=== PATIENT | female | born 1960 | race Caucasian/White ===

== ENCOUNTER 2019-08-28 15:24 | Emergency (ER) | payer MEDICARE, OTHER ==
--- NOTE | 2019-08-28 16:17 | ED Physician Documentation ---
History of Present Illness - Stated complaint Stated Complaint: HIGH BP - Chief complaint Chief Complaint: Cardiac - History obtained from History obtained from: Patient - History of Present Illness Timing: Chronic - Additonal information Additional information: 59 year old female presents to the clinic for evaluation of hypertension. Reports that she has a long standing hx of htn. at home her BP typically is 140-160 sbp. Over the last 2 days she has consistently noted sbp in the 170-180 range. She denies CP, dyspnea, headache, feeling faint, light headed, vertigo, abdominal pain, dysuria, leg swelling. pt admits to recent frustration and anxiety to multiple health stressors. sh eis very frustrated in affect during today's ED visit Her hx is preceded by recent dc of breast cancer. s/p bilateral mastectomy which was complicate dby incision abscess of the left chest requiring hospitalization late June at . she has a chest wall wound which is being followed by home health and pt reports that over time she has noted the wound is improving.No fevers. [facility] Review of Systems Constitutional: denies: Fever, Myalgias Eyes: denies: Decreased vision Cardiac: reports: Reviewed and negative. denies: Chest pain / pressure, Palpitations, Pedal edema, Calf pain Respiratory: denies: Cough GI: denies: Abdominal Pain, Nausea, Vomiting : denies: Dysuria Skin: reports: Lesions (left chest wall wound healing by secondary intention) Musculoskeletal: reports: Back pain (chronic; no change in baseline) Neurologic: denies: Numbness, Difficulty speaking, Syncope, Seizure, Confused, Altered mental status, Headache Psychiatric: reports: Anxiety Endocrine: denies: Polydypsia, Polyuria Immunocompromised: reports: Other (she recently dx with breast cancer. s/p mastectomy bilaterally with bialteral lymphnode removal. 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 PRESS OPERATOR: Hysterectomy, Mastectomy - Present Medications Home Medications: Ambulatory Orders Medication Instructions Recorded Confirmed Albuterol Sulfate [Proair Hfa 1 puffs INH PRN PRN 08/28/19 08/28/19 Inhaler] Atorvastatin [Lipitor] 20 mg PO DAILY 08/28/19 08/28/19 Cetirizine [ZyrTEC] 10 mg PO DAILY 08/28/19 08/28/19 Cholecalciferol [Vitamin D3] 3,000 mg PO DAILY 08/28/19 08/28/19 Gabapentin 600 mg PO TID 08/28/19 08/28/19 Glipizide 10 mg PO BID 08/28/19 08/28/19 Leflunomide 20 mg PO DAILY 08/28/19 08/28/19 Levothyroxine [Synthroid] 75 mcg PO QDAC 08/28/19 08/28/19 Losartan Potassium 100 mg PO DAILY 08/28/19 08/28/19 Metformin HCl [Metformin HCl ER] 2,000 mg PO DAILY 08/28/19 08/28/19 Trazodone HCl 150 mg PO DAILY 08/28/19 08/28/19 amLODIPine [Norvasc] 10 mg PO DAILY 08/28/19 08/28/19 busPIRone [Buspar] 10 mg PO TID 08/28/19 08/28/19 - Allergies Allergies/Adverse Reactions: Allergies Allergy/AdvReac Type Severity Reaction Status Date / Time codeine Allergy Intermediate Respiratory Verified 08/28/19 15:34 cyclobenzaprine HCl * Allergy Intermediate Rash Verified 08/28/19 15:34 [From Flexeril] lisinopril Allergy Intermediate Respiratory Verified 08/28/19 15:34 flunisolide [Flunisolide] Allergy Unknown Unknown Verified 08/28/19 15:34 - Living Situation Living Situation: reports: Alone Living Arrangement: reports: At home - Social History Does the pt smoke?: No Smoking Status: Never smoker Does the pt drink ETOH?: No - Immunizations Immunizations are current?: Yes PD ED PE NORMAL - General General: Alert and oriented X 3, No acute distress - HEENT HEENT: Atraumatic - Neck Neck: Supple, no meningeal sign, No adenopathy - Cardiac Cardiac: RRR, No gallop, No rub, Strong equal pulses - Respiratory Respiratory: No respiratory distress, Clear bilaterally - Abdomen Abdomen: Normal bowel sounds, Non tender - Derm Derm: Normal color, Warm and dry, No rash - Extremities Extremities: No deformity, No edema, No calf tenderness / cord - Neuro Neuro: Alert and oriented X 3, No motor deficit, No sensory deficit, Normal speech Eye Opening: Spontaneous Motor: Obeys Commands Verbal: Oriented GCS Score: 15 - Psych Psych: Other (anxiety ) - Free text exam Free text exam: left sided chest wall wound covered in gaize. Unable to measure wound size. No e/o surrounding erythema Results - Vitals Vitals: Vital Signs - 24 hr 08/28/19 08/28/19 15:34 16:00 Temperature 36.9 C Heart Rate 95 95 Respiratory 16 18 Rate Blood Pressure 170/87 H 147/74 H O2 Saturation 95 99 Oxygen O2 Source Room air - EKG (time done) ekg Rate: Rate (enter#) Rhythm: NSR [place]: Normal Intervals: Normal NE QRS: Normal Ischemia: Normal ST segments Computer interpretation: Agree with computer PD MEDICAL DECISION MAKING - ED course Complexity details: re-evaluated patient, considered differential, d/w patient ED course: Chronic HTN in a 59 year old female who presents with higher than normal BP over the last 2 days - ddx consider but not fully inclusive includes htn, acs, hypertensive urgency vs emergency, heart failure - ECG sinus rhythm without ischemic changes. no reports of chest pain or dyspnea. defer acs. low suspicion for acs. - no headache, back pain, chest pain, crackles, leg swelling or e/o CHF on clinical exam - pt's BP in clinic ranged int eh 140 SBP to the 170's. she has no symptoms indicative of hypertensive urgency; defer all alsb - encouraged pt to follow closely with her pcp (including virtual visits) to discuss longer term BP control. recent BP elevations may be related to acute medical stressors and anxiety - discussed in detail BP return precautions and symptoms Departure - Departure Clinical Impression: Hypertension Qualifiers: Hypertension type: essential hypertension Qualified Code(s): I10 - Essential (primary) hypertension Condition: Good Instructions: ED HTN Established Follow-Up: Your,doctor [Other] - Within 1 week Print Language: Welsh Comments: Janene, Your BP is noted to be elevated today, however this can be expected with your history of high blood pressure and the stress you are undergoing with your health Please schedule a follow up or virtual visit with your primary doctor to discuss 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 continue taking the amlodipine and losartin you are currently prescribed. Return to the emergency department if you develop chest pain, have shortness of breath, leg swelling or headaches or severe abdominal and back pain when your blood pressure is elevated. If any recorded blood pressure at home is > 190/120, return for a second look
[2019-08-28 17:23] VITALS: BP 163/90
== END 2019-08-28 17:22 | disposition home or self-care (01) ==
LOC: ED 15:24
DX: I10 Essential (primary) hypertension (principal); F41.9 Anxiety disorder, unspecified; Z85.3 Personal history of malignant neoplasm of breast; Z90.13 Acquired absence of bilateral breasts and nipples; E11.9 Type 2 diabetes mellitus without complications; Z79.84 Long term (current) use of oral hypoglycemic drugs
CPT/HCPCS: 93005; 99283; 99284